=== PATIENT | male | born 1990 | race Caucasian/White ===

== ENCOUNTER 2020-08-05 20:16 | Inpatient (IN) | payer OTHER ==
[~2020-08-05] VITALS: Ht 170.2 cm; Wt 62.1 kg
[2020-08-05] MEDS ORDERED: TRAZ-257 PO (20:58)
[2020-08-05 21:32] LABS: BASOPHILS % (AUTO) 0.8 % (0.0-2.0); EOSINOPHILS % (AUTO) 2.4 % (1.0-6.0); HEMATOCRIT 42.9 % (41-53); HEMOGLOBIN 14.7 g/dL (13.5-17.5); LYMPHOCYTES # (AUTO) 1.9 K/uL (1.0-4.8); LYMPHOCYTES % (AUTO) 25.8 % (22.0-44.0); MEAN CORPUSCULAR HEMOGLOBIN 30.7 pg (26.0-34.0); MEAN CORPUSCULAR HGB CONC 34.3 G/dL (31.0-37.0); MEAN CORPUSCULAR VOLUME 90 fL (80-100); MONOCYTES # (AUTO) 0.5 K/uL (0.1-1.0); MONOCYTES % (AUTO) 7.3 % (2.0-9.0); NEUTROPHILS # (AUTO) 4.7 K/uL (1.8-7.7); NEUTROPHILS % (AUTO) 63.7 % (40.0-70.0); PLATELET COUNT (AUTO) 202 K/uL (150-450); RED CELL DISTRIBUTION WIDTH 13.4 % (11.5-14.5)
[2020-08-05 21:43] LABS: ANION GAP 4 mmol/L (8-16); CARBON DIOXIDE 30 mmol/L (22-29); CHLORIDE 104 mmol/L (98-107); CREATININE 1.04 mg/dL (0.60-1.30); GLOMERULAR FILTR. RATE CALC > 60 mL/min (>60); GLUCOSE,RANDOM 92 mg/dL (70-110); POTASSIUM 4.5 mmol/L (3.5-5.1); SODIUM SERUM 138 mmol/L (136-145); UREA NITROGEN, BLOOD 14 mg/dL (7-18)
[2020-08-05 21:49] LABS: ALANINE AMINOTRANSFERASE 115 U/L (12-78); ALBUMIN 3.9 g/dL (3.4-5.0); ALKALINE PHOSPHATASE 97 U/L (46-116); ASPARTATE AMINOTRANSFERASE 50 U/L (15-37); BILIRUBIN,TOTAL 0.8 mg/dL (0.1-1.0); TOTAL PROTEIN, SERUM 7.6 g/dL (6.4-8.2)
[2020-08-05] MEDS ORDERED: PERTUSS(ACELL),DIPH,TET VAC/PF 0.5 ML VIAL IM ONE (23:15)
[2020-08-06] MEDS ORDERED: ACETAMINOPHEN 500 MG TABLET PO ONE (00:30)
[2020-08-06 02:00] VITALS: BP 99/55
[2020-08-06 03:30] LABS: AMPHET/METH SCREEN,URINE NEGATIVE (NEGATIVE); BARBITURATE SCREEN, URINE NEGATIVE (NEGATIVE); BENZODIAZEPINES SCREEN,URINE NEGATIVE (NEGATIVE); CANNABINOID SCREEN,URINE NEGATIVE (NEGATIVE); COCAINE SCREEN,URINE NEGATIVE (NEGATIVE); METHADONE SCREEN, URINE NEGATIVE (NEGATIVE); OPIATE SCREEN,URINE NEGATIVE (NEGATIVE); PHENCYCLIDINE SCREEN,URINE NEGATIVE (NEGATIVE)
[2020-08-06] MEDS ORDERED: INFLUENZA VIRUS VACCINE QVS 2020-21 (6MO+)/PF 60 MCG/0.5 ML SYRINGE IM ONE (04:00)
[2020-08-06] MEDS ORDERED: ONDANSETRON HCL 4 MG/2 ML VIAL IVP PRN (04:00)
[2020-08-06 04:19] VITALS: BP 109/60
[2020-08-06] MEDS: KETOROLAC TROMETHAMINE 10 MG TABLET PO PRN ×2 (05:59→10:08)
[2020-08-06 08:16] VITALS: BP 99/57
[2020-08-06] MEDS: ENOXAPARIN SODIUM 40 MG/0.4 ML PF SYRINGE SQ SCH (08:43)
[2020-08-06] MEDS: OLANZapine 5 MG TABLET PO SCH ×2 (10:05→20:55)
[2020-08-06 19:55] VITALS: BP 100/53
[2020-08-06] MEDS: TraZODone HCL 50 MG TABLET PO SCH (20:55)
[2020-08-07 04:45] VITALS: BP 106/58
[2020-08-07] MEDS: ENOXAPARIN SODIUM 40 MG/0.4 ML PF SYRINGE SQ SCH (08:08)
[2020-08-07] MEDS: OLANZapine 5 MG TABLET PO SCH ×2 (08:08→21:09)
[2020-08-07 20:05] VITALS: BP 104/54
[2020-08-07] MEDS: TraZODone HCL 50 MG TABLET PO SCH (21:00)
[2020-08-08 04:33] VITALS: BP 122/85
[2020-08-08 07:38] VITALS: BP 98/55
[2020-08-08] MEDS: OLANZapine 5 MG TABLET PO SCH ×2 (08:25→20:27)
[2020-08-08] MEDS: ENOXAPARIN SODIUM 40 MG/0.4 ML PF SYRINGE SQ SCH (08:27)
[2020-08-08] MEDS: TraZODone HCL 50 MG TABLET PO SCH ×2 (20:27→21:00)
[2020-08-08 20:30] VITALS: BP 125/57
[2020-08-09 04:07] VITALS: BP 102/72
[2020-08-09 08:27] VITALS: BP 106/61
[2020-08-09] MEDS: OLANZapine 5 MG TABLET PO SCH ×2 (08:35→20:00)
[2020-08-09] MEDS: ENOXAPARIN SODIUM 40 MG/0.4 ML PF SYRINGE SQ SCH (08:36)
[2020-08-09] MEDS ORDERED: TraZODone HCL 50 MG TABLET PO PRN (12:00)
[2020-08-09 17:51] LABS: COVID AG,FIA SOURCE NASOPHARYNGEAL
[2020-08-09 18:56] VITALS: BP 136/67
[2020-08-09] MEDS: ACETAMINOPHEN 325 MG TABLET PO PRN (18:59)
[2020-08-09] MEDS ORDERED: BENZTROPINE MESYLATE 1 MG TABLET PO SCH (21:00)
[2020-08-10 04:51] VITALS: BP 103/61
[2020-08-10 08:03] VITALS: BP 126/68
[2020-08-10] MEDS: OLANZapine 5 MG TABLET PO SCH ×2 (08:10→20:14)
[2020-08-10] MEDS: ENOXAPARIN SODIUM 40 MG/0.4 ML PF SYRINGE SQ SCH (08:13)
[2020-08-10] MEDS: BENZTROPINE MESYLATE 1 MG TABLET PO SCH ×2 (13:01→20:15)
[2020-08-10] MEDS: CETIRIZINE HCL 10 MG TABLET PO PRN (17:28)
[2020-08-10] MEDS: CALCIUM CARBONATE 500 MG CHEWABLE TABLET CHEW PRN (17:28)
[2020-08-10 20:07] VITALS: BP 108/58
[2020-08-11] MEDS: ACETAMINOPHEN 325 MG TABLET PO PRN (06:43)
[2020-08-11 07:25] VITALS: BP 110/71
[2020-08-11] MEDS: BENZTROPINE MESYLATE 1 MG TABLET PO SCH ×2 (08:10→19:36)
[2020-08-11] MEDS: OLANZapine 5 MG TABLET PO SCH ×2 (08:10→19:36)
[2020-08-11] MEDS: ENOXAPARIN SODIUM 40 MG/0.4 ML PF SYRINGE SQ SCH (08:11)
[2020-08-11 20:47] VITALS: BP 117/54
[2020-08-12 04:58] VITALS: BP 120/62
[2020-08-12] MEDS: OLANZapine 5 MG TABLET PO SCH ×2 (07:57→20:18)
[2020-08-12] MEDS: ENOXAPARIN SODIUM 40 MG/0.4 ML PF SYRINGE SQ SCH (07:57)
[2020-08-12] MEDS: BENZTROPINE MESYLATE 1 MG TABLET PO SCH ×2 (07:57→20:18)
[2020-08-12 08:17] VITALS: BP 109/68
[2020-08-12] MEDS: ACETAMINOPHEN 325 MG TABLET PO PRN (16:07)
[2020-08-12 19:35] VITALS: BP 113/64
[2020-08-13] MEDS: ACETAMINOPHEN 325 MG TABLET PO PRN (00:30)
[2020-08-13] MEDS ORDERED: DiphenhydrAMINE HCL 50 MG/ML VIAL IM ONE ×2 (02:30→04:30)
[2020-08-13] MEDS ORDERED: LORazepam 2 MG/ML VIAL IM ONE (02:30)
[2020-08-13] MEDS ORDERED: HALOPERIDOL LACTATE 5 MG/ML VIAL IM ONE ×2 (02:30→04:30)
[2020-08-13] MEDS: TraZODone HCL 100 MG TABLET PO PRN (03:24)
[2020-08-13 03:30] VITALS: BP 158/101
[2020-08-13 04:44] VITALS: BP 113/84
[2020-08-13 06:37] LABS: COVID AG,FIA SOURCE NASOPHARYNGEAL
[2020-08-13] MEDS: OLANZapine 5 MG TABLET PO SCH ×2 (08:13→20:01)
[2020-08-13] MEDS: BENZTROPINE MESYLATE 1 MG TABLET PO SCH ×2 (08:13→20:01)
[2020-08-13] MEDS: ENOXAPARIN SODIUM 40 MG/0.4 ML PF SYRINGE SQ SCH (08:14)
[2020-08-13 20:03] VITALS: BP 107/71
[2020-08-14] MEDS: BENZTROPINE MESYLATE 1 MG TABLET PO SCH ×2 (07:58→20:17)
[2020-08-14] MEDS: OLANZapine 5 MG TABLET PO SCH (07:58)
[2020-08-14] MEDS: ENOXAPARIN SODIUM 40 MG/0.4 ML PF SYRINGE SQ SCH (08:01)
[2020-08-14 08:28] VITALS: BP 114/79
[2020-08-14] MEDS: OLANZapine 7.5 MG TABLET PO SCH (20:16)
[2020-08-14 20:21] VITALS: BP 123/62
[2020-08-15] MEDS: TraZODone HCL 100 MG TABLET PO PRN ×2 (00:07→20:22)
[2020-08-15 07:57] VITALS: BP 108/57
[2020-08-15] MEDS: OLANZapine 7.5 MG TABLET PO SCH ×2 (08:36→20:02)
[2020-08-15] MEDS: ENOXAPARIN SODIUM 40 MG/0.4 ML PF SYRINGE SQ SCH (08:36)
[2020-08-15] MEDS: BENZTROPINE MESYLATE 1 MG TABLET PO SCH ×2 (08:36→20:02)
[2020-08-15] MEDS: CALCIUM CARBONATE 500 MG CHEWABLE TABLET CHEW PRN (15:52)
[2020-08-15] MEDS: CETIRIZINE HCL 10 MG TABLET PO PRN (15:54)
[2020-08-15 15:57] VITALS: BP 127/76
[2020-08-15 21:59] VITALS: BP 119/79
[2020-08-16] MEDS: OLANZapine 7.5 MG TABLET PO SCH ×2 (08:19→19:50)
[2020-08-16] MEDS: BENZTROPINE MESYLATE 1 MG TABLET PO SCH ×2 (08:19→19:50)
[2020-08-16] MEDS: ENOXAPARIN SODIUM 40 MG/0.4 ML PF SYRINGE SQ SCH ×2 (08:19→08:23)
[2020-08-16 08:28] VITALS: BP 110/62
[2020-08-16] MEDS ORDERED: OLAN7.5T2 PO (13:31)
[2020-08-16] MEDS ORDERED: BENZ1TAB10 PO (13:33)
[2020-08-16] MEDS: CALCIUM CARBONATE 500 MG CHEWABLE TABLET CHEW PRN (16:35)
[2020-08-16] MEDS: TraZODone HCL 100 MG TABLET PO PRN (19:50)
[2020-08-16 20:09] VITALS: BP 114/76
[2020-08-17 05:05] VITALS: BP 118/56
[2020-08-17 07:39] VITALS: BP 112/65
[2020-08-17] MEDS: BENZTROPINE MESYLATE 1 MG TABLET PO SCH (08:09)
[2020-08-17] MEDS: OLANZapine 7.5 MG TABLET PO SCH (08:09)
== END 2020-08-17 09:00 | DRG 880 ==
LOC: EMS 20:19 → 5S 08-06 00:30 → 6S 08-06 05:56
PROVIDERS: ADMIT Internal Medicine; ATTEND Internal Medicine
DX: R45.851 Suicidal ideations (principal); F15.10 Other stimulant abuse, uncomplicated; F25.1 Schizoaffective disorder, depressive type; F41.9 Anxiety disorder, unspecified; Z79.899 Other long term (current) drug therapy; Z20.828 Contact with and (suspected) exposure to other viral communicable diseases
CPT/HCPCS: 70450; 72125; 80074; 87426; 90715; G0480; J1200; J1630; J1650; J2060